=== PATIENT | male | born 1990 | race African-American/Black ===

== ENCOUNTER 2019-02-24 06:07 | Emergency (ER) | payer SELFPAY ==
[~2019-02-24] VITALS: Ht 177.8 cm; Wt 81.6 kg
[2019-02-24 06:15] VITALS: BP 123/74
--- NOTE | 2019-02-24 06:47 | PHYS DOC ---
Past Medical History Past Medical History: No Pertinent History Past Surgical History: No Surgical History Alcohol Use: Occasionally Drug Use: None Adult General Chief Complaint Chief Complaint: GROIN PAIN [facility] HPI Patient is a 28 year old -[place] male who presents with bilateral inguinal groin pain 2 months, and white milky urethral discharge in a.m. Denies testicular pain, tenderness. Patient has been evaluated at [facility] and treated for STDs. He was most recently seen at [facility] 3 days ago for the same complaint. Patient was evaluated at that time and told that that he does not have an STD. Patient denies any new symptoms or complaints. He is not established with a primary care doctor or [facility] and routine healthcare.[] Review of Systems Review of Systems Constitutional: Denies fever or chills [] Eyes: Denies change in visual acuity, redness, or eye pain [] HENT: Denies nasal congestion or sore throat [] Respiratory: Denies cough or shortness of breath [] Cardiovascular: No additional information not addressed in HPI [] GI: Denies abdominal pain, nausea, vomiting, bloody stools or diarrhea [] : Denies dysuria or hematuria [] Musculoskeletal: Denies back pain or joint pain [] Integument: Denies rash or skin lesions [] Neurologic: Denies headache, focal weakness or sensory changes [] Endocrine: Denies polyuria or polydipsia [] All other systems were reviewed and found to be within normal limits, except as documented in this note. Allergies Allergies Allergies Coded Allergies Type Severity Reaction Last Updated Verified No Known Drug Allergies 02/24/19 No Physical Exam Physical Exam Constitutional: Well developed, well nourished, no acute distress, non-toxic ap pearance. [] HENT: Normocephalic, atraumatic, bilateral external ears normal, oropharynx moist, no oral exudates, nose normal. [] Eyes: PERRLA, EOMI, conjunctiva normal. Abdomen: Bowel sounds normal, soft, no tenderness. [] : No testicular masses, tenderness, swelling, or urethral discharge appre ciated. [] Back: No tenderness. [] Extremities: No tenderness,. [] Neurologic: Alert and oriented X 3, normal motor function, normal sensory function, no focal deficits noted. [] Psychologic: Affect normal, judgement normal, mood normal. [] Current Patient Data Vital Signs Vital Signs Date Time Temp Pulse Resp B/P (MAP) Pulse Ox O2 Delivery O2 Flow Rate FiO2 02/24/19 06:15 97.5 79 16 123/74 (90) 99 97.5 EKG EKG [] Radiology/Procedures Radiology/Procedures [] Course & Med Decision Making Course & Med Decision Making Pertinent Labs and Imaging studies reviewed. (See chart for details) Patient does not have a acute medical complaint. Recommend that he establish this with the PCP and avoid the ED for routine chronic complaints] Dragon Disclaimer Dragon Disclaimer This electronic medical record was generated, in whole or in part, using a voice recognition dictation system. Departure Departure Impression: Primary Impression: Bilateral groin pain Disposition: HOME, SELF-CARE Condition: GOOD Patient Instructions: Medical Screening Exam Additional Instructions: Take ibuprofen for pain and inflammation. Contact a primary care provider and schedule an appointment for further evaluation. TONY LOPES DO Feb 24, 2019 06:47
== END 2019-02-24 06:46 | disposition home or self-care (01) ==
LOC: ER 06:07
DX: R10.32 Left lower quadrant pain (principal); R10.31 Right lower quadrant pain
CPT/HCPCS: 99281